=== PATIENT | male | born 1945 | race Native Hawaiian/Other Pacific Islander ===

== ENCOUNTER 2017-03-09 09:09 | Outpatient (CLI) | payer OTHER ==
[~2017-03-09 09:09] MED LIST: ASA LOW STR81 MG PO; BENZONATATE200 MG PO; COZAAR100 MG PO; CYCL10TA35 PO; LEVO500T PO; METF500T PO; MOBIC7.5 M1 PO; NIFE30TA PO; PROAIR HFA IN; SIMV20TA2 PO
== END 2017-03-09 19:05 | disposition home or self-care (01) ==
LOC: RAD 09:09
DX: M25.551 Pain in right hip (principal)

== ENCOUNTER 2017-09-12 08:15 | Outpatient (CLI) | payer OTHER ==
[2017-09-12 08:49] LABS: PLATELET COUNT 141 K/uL (142-355)
[2017-09-12 09:06] LABS: POTASSIUM 4.2 mmol/L (3.6-5.2); SODIUM 137 mmol/L (136-145)
== END 2017-09-12 19:00 | disposition home or self-care (01) ==
LOC: LABW 08:15
PROVIDERS: Internal Medicine
DX: E11.9 Type 2 diabetes mellitus without complications (principal); Z12.5 Encounter for screening for malignant neoplasm of prostate
CPT/HCPCS: 36415; 80053; 80061; 81000; 82043; 82570; 83036; 84153; 84443; 85027

== ENCOUNTER 2018-03-13 07:50 | Outpatient (CLI) | payer OTHER ==
[2018-03-13 08:34] LABS: PLATELET COUNT 142 K/uL (142-355)
[2018-03-13 08:57] LABS: POTASSIUM 4.4 mmol/L (3.6-5.2)
== END 2018-03-13 19:32 | disposition home or self-care (01) ==
LOC: LABW 07:50
PROVIDERS: Internal Medicine
DX: E11.9 Type 2 diabetes mellitus without complications (principal)
CPT/HCPCS: 36415; 80053; 80061; 81000; 82043; 82570; 83036; 84443; 85027

== ENCOUNTER → 2018-05-29 | Outpatient (CLI) | payer OTHER | END | disposition short-term general hospital (02) | LOC: AMB 09:34 | DX: R07.89 Other chest pain (principal); M54.5 Low back pain; I95.89 Other hypotension | CPT/HCPCS: A0425; A0429 ==

== ENCOUNTER 2018-08-08 09:43 | Outpatient (CLI) | payer OTHER | END 2018-08-08 20:59 | disposition home or self-care (01) | LOC: LABW 09:43 | DX: R19.7 Diarrhea, unspecified (principal) | CPT/HCPCS: 82272; 83630; 87015; 87045; 87324; 87328; 87329; 87449; 87507; 87899 ==

== ENCOUNTER 2019-03-20 10:25 | Outpatient (CLI) | payer OTHER ==
[2019-03-20 10:45] LABS: PLATELET COUNT 129 K/uL (142-355)
[2019-03-20 11:03] LABS: POTASSIUM 4.5 mmol/L (3.6-5.2)
== END 2019-03-20 22:27 | disposition home or self-care (01) ==
LOC: LABW 10:25
PROVIDERS: Internal Medicine
DX: E11.9 Type 2 diabetes mellitus without complications (principal)
CPT/HCPCS: 36415; 80053; 80061; 81000; 82043; 82570; 83036; 84439; 84443; 85027

== ENCOUNTER 2019-06-10 09:15 | Observation (INO) | payer OTHER ==
[~2019-06-10] VITALS: Ht 190.5 cm; Wt 78.5 kg
[2019-06-10 09:55] VITALS: BP 131/84; TEMP 97.6; Ht 190.5 cm; Wt 78.5 kg
[2019-06-10 10:12] LABS: PLATELET COUNT 207 K/uL (142-355)
[2019-06-10 10:39] LABS: POTASSIUM 4.9 mmol/L (3.6-5.2)
[2019-06-10 16:00] VITALS: BP 149/97; TEMP 98.2
[2019-06-10 20:00] VITALS: BP 166/91; TEMP 98.2
[2019-06-10] MEDS ORDERED: CARV12.5 PO (20:15)
[2019-06-10] MEDS ORDERED: CLOP75TA2 PO (20:15)
[2019-06-11] VITALS: BP 141/80; TEMP 97.7
[2019-06-11 04:00] VITALS: BP 165/77; TEMP 98.1
[2019-06-11 05:34] LABS: PLATELET COUNT 151 K/uL (142-355)
[2019-06-11 08:00] VITALS: BP 179/76; TEMP 97.9
[2019-06-11 12:00] VITALS: BP 184/79; TEMP 98.2
[2019-06-11 16:00] VITALS: BP 180/95; TEMP 98.1
[2019-06-11 20:00] VITALS: BP 185/88; TEMP 98.2
[2019-06-12] VITALS: BP 152/77; TEMP 98.4
[2019-06-12 04:00] VITALS: BP 162/78; TEMP 97.5
[2019-06-12 05:45] LABS: POTASSIUM 3.7 mmol/L (3.6-5.2)
[2019-06-12 08:00] VITALS: BP 158/95; TEMP 97.3
== END 2019-06-12 09:00 | disposition home or self-care (01) ==
LOC: MED/SURG 09:15
PROVIDERS: ADMIT Internal Medicine
DX: K52.89 Other specified noninfective gastroenteritis and colitis (principal); E86.0 Dehydration; R53.1 Weakness; K92.1 Melena; R10.13 Epigastric pain; J44.9 Chronic obstructive pulmonary disease, unspecified; I10 Essential (primary) hypertension; I25.10 Atherosclerotic heart disease of native coronary artery without angina pectoris; E11.9 Type 2 diabetes mellitus without complications; M15.8 Other polyosteoarthritis; I73.89 Other specified peripheral vascular diseases
CPT/HCPCS: 36415; 80048; 80053; 81000; 82272; 83630; 85027; 87015; 87045; 87324; 87328; 87329; 87449; 87899; 96365; 99220; G0378; G0379; J2405; J3490

== ENCOUNTER 2019-06-26 09:07 | Outpatient (CLI) | payer OTHER ==
[~2019-06-26 09:07] MED LIST changes: +CARV12.5 PO; +CLOP75TA2 PO
== END 2019-06-26 19:29 | disposition home or self-care (01) ==
LOC: CT 09:07
DX: R10.32 Left lower quadrant pain (principal)
CPT/HCPCS: Q9963

== ENCOUNTER 2019-07-31 18:23 | Emergency (ER) | payer OTHER ==
[~2019-07-31] VITALS: Ht 190.5 cm; Wt 74.4 kg
[2019-07-31 19:15] LABS: PLATELET COUNT 234 K/uL (142-355)
[2019-07-31 19:20] LABS: POTASSIUM 4.3 mmol/L (3.6-5.2)
[2019-07-31 21:45] VITALS: BP 116/82; TEMP 98.2
== END 2019-07-31 21:47 | disposition home or self-care (01) ==
LOC: ED 18:23
PROVIDERS: Emergency Medicine
DX: E86.0 Dehydration (principal); C18.9 Malignant neoplasm of colon, unspecified; C79.9 Secondary malignant neoplasm of unspecified site; Z93.3 Colostomy status
CPT/HCPCS: 36415; 80053; 81000; 85027; 93005; 96360; 96361; 96375; 99284; J2405